=== PATIENT | male | born 1980 | race Caucasian/White ===

== ENCOUNTER → 2016-12-19 19:58 | Outpatient (CLI) | payer MEDICAID ==
[2016-10-09 09:34] VITALS: BMI 39.9
[~2016-12-19 19:58] MED LIST: DEPAKOTE500 MG PO; FISH OIL 1,0001 CA1 PO; GLUCOPHAGE500 MG PO; HYDROCODONE-APA1 TAB PO; LATUDA40 MG PO; LISINOPRIL10 MG PO; MULTIPLE VITAMI1 TA1 PO; PRILOSEC20 MG PO; STRATTERA40 MG PO; WELLBUTRIN SR150 MG PO; ZOLOFT100 MG PO
== END | disposition home or self-care (01) ==
LOC: D.SLEEP 19:58
DX: G47.33 Obstructive sleep apnea (adult) (pediatric) (principal)

== ENCOUNTER → 2017-05-30 08:56 | Outpatient (CLI) | payer MEDICAID ==
[2016-10-09 09:34] VITALS: BMI 39.9
== END | disposition home or self-care (01) ==
LOC: D.CT 08:56
DX: R91.1 Solitary pulmonary nodule (principal)

== ENCOUNTER → 2017-07-23 07:30 | Outpatient (CLI) | payer MEDICAID ==
[2016-10-09 09:34] VITALS: BMI 39.9
--- NOTE | ~2017-07-23 | ST ---
PATIENT:NBA PARDO MEDICAL RECORD: [id number] SEX: M LOCATION:[facility] ORDER #: ADMISSION DATE: 07/23/17 AGE OF PATIENT: 37 REFERRING PHYSICIAN: INTERPRETING PHYSICIAN: CLOTILDE HUERTAS MD DATE OF SERVICE: 07/23/2017 Nuclear Stress Test INDICATION: Chest pain of unknown etiology. He was exercised on standard Lexiscan protocol with 32 mCi of sestamibi injected at peak stress 12.4 mCi were used previously for rest images. FINDINGS: Gated SPECT reveals preserved ejection fraction at 69% with good wall motion and thickening and brightening throughout all segments. SPECT imaging Cardiolite was used as myocardial perfusion agent. There is homogeneous uptake throughout all segments at rest and stress with no evidence of inducible ischemia or previous infarction. OVERALL IMPRESSION: 1. This is a normal nuclear stress test with no evidence of inducible ischemia or previous infarction. 2. Gated SPECT reveals preserved ejection fraction greater than 60%. In this patient with chest pain history, the current scan does not suggest the presence of hemodynamically significant coronary disease. Evaluate noncardiac etiology of chest pain. TRANSINT:[id number] Voice Confirmation ID: [id number] DOCUMENT ID: [id number] CLOTILDE HUERTAS MD CC: [id number] DICTATION DATE: 07/24/17 1137 ACCOUNT SERVICES ANALYST: 07/25/17 0120 DEP CLI 07/23/17 [facility] [address] [place] [address]
== END | disposition home or self-care (01) ==
LOC: D.NM 07:30
DX: R07.9 Chest pain, unspecified (principal)

== ENCOUNTER → 2017-08-02 09:08 | Outpatient (CLI) | payer MEDICAID ==
[2016-10-09 09:34] VITALS: BMI 39.9
== END | disposition home or self-care (01) ==
LOC: D.RT 09:00
DX: R06.00 Dyspnea, unspecified (principal)

== ENCOUNTER → 2018-01-08 19:17 | Outpatient (CLI) | payer MEDICAID ==
[2016-10-09 09:34] VITALS: BMI 39.9
== END | disposition home or self-care (01) ==
LOC: D.SLEEP 12-17 08:00
DX: G47.30 Sleep apnea, unspecified (principal)

== ENCOUNTER 2018-05-28 20:17 | Emergency (ER) | payer MEDICAID ==
[~2018-05-28] VITALS: Ht 172.7 cm; Wt 111.8 kg
[2018-05-28 20:26] VITALS: Ht 172.7 cm; Wt 111.8 kg
[2018-05-29] MEDS ORDERED: TORADOL10 MG PO (01:23)
[2018-05-29 02:48] VITALS: BP 120/75
[2018-07-24] MEDS ORDERED: LOSARTAN POTASS25 MG PO (11:29)
[2018-07-24] MEDS ORDERED: LIPITOR40 MG PO (11:32)
[2018-07-24] MEDS ORDERED: ACTOS30 MG PO (11:32)
== END 2018-05-29 02:13 | disposition home or self-care (01) ==
LOC: D.ER 20:17
DX: S61.512A Laceration without foreign body of left wrist, initial encounter (principal); W26.8XXA Contact with other sharp object(s), not elsewhere classified, initial encounter; Y93.89 Activity, other specified; Y92.89 Other specified places as the place of occurrence of the external cause

== ENCOUNTER 2018-07-25 07:49 | Day surgery (SDC) | payer MEDICAID ==
[~2018-07-25] VITALS: Ht 172.7 cm; Wt 116.6 kg
--- NOTE | ~2018-07-25 | OP ---
PATIENT NAME: NBA PARDO MEDICAL RECORD: [id number] :78 LOCATION:[facility] ADMISSION DATE: SURGEON: NICO HENDRICKSON MD DATE OF OPERATION: 07/25/2018 PREOPERATIVE DIAGNOSES: 1. Recurrent anal fistula. 2. Hypertension. 3. Diabetes mellitus. 4. Gastroesophageal reflux disease. POSTOPERATIVE DIAGNOSES: 1. Recurrent anal fistula. 2. Hypertension. 3. Diabetes mellitus. 4. Gastroesophageal reflux disease. PROCEDURE: 1. Anal exam under anesthesia. 2. Tryon anal fistula plug placement. SURGEON: Nico Hendrickson MD REPORT OF PROCEDURE: The patient was placed in the lithotomy position. The perianal region was prepped and draped in sterile fashion. An anoscope was inserted and a 360 degree inspection was performed. The patient was noted to have a fistula from the anoderm to the distal rectum at about the 7 o'clock position. There was no sign of an underlying fluid collection. We penetrated the external aspect of the wound through the anoderm and we were able to progress in a straight line to the distal rectal opening. A Tryon anal fistula patch was opened and a portion of this was removed. The plug was then pulled through the opening and sutured into place with 2-0 nylons at the anoderm and in the rectal tissue. We irrigated out the wound with normal saline and assured there was no sign of any bleeding. The patient did have a small anterior internal hemorrhoid, but there did not appear to be any signs of any bleeding from this. We then inserted a piece of Gelfoam dipped in Americ[place] into the anal region. COMPLICATIONS: None. CONDITION: Stable. ANESTHESIA: General endotracheal. BLOOD LOSS: Minimal. TRANSINT:[id number] Voice Confirmation ID: [id number] DOCUMENT ID: [id number] OPERATIVE REPORT [id number] PARDO,NBANICO LEE MD at 0807 CC: CATHIE CARTWRIGHT [id number] DICTATION DATE: 07/25/18 1106 CHEFS: 07/25/18 1144 [facility] 07/25/18 [place] [address]
[~2018-07-25 07:49] MED LIST changes: +ACTOS30 MG PO; +LIPITOR40 MG PO; +LOSARTAN POTASS25 MG PO; +TORADOL10 MG PO
[2018-07-25 08:22] LABS: CALC OSMOLALITY 272 mosm/kg (275-300); CALCIUM 8.3 mg/dL (8.5-10.1); CHLORIDE - SERUM 99 mmol/L (98-107); POTASSIUM - SERUM 3.9 mmol/L (3.5-5.1); SODIUM 133 mmol/L (136-145); UREA NITROGEN 8 mg/dL (7-18); eGFR NON AFRICAN AMERICAN 88 mL/min (90-120)
[2018-07-25 08:25] LABS: GLUCOSE 258 mg/dL (74-106)
[2018-07-25 08:26] LABS: EOSINOPHILS 1.1 % (0-7); HEMATOCRIT 41.4 % (42.0-54.0); HEMOGLOBIN 14.4 g/dL (13.5-17.5); IMMATURE GRANULOCYTES 0.5 % (0-5); LYMPHOCYTES 29.7 % (15-50); MCH 29.4 pg (26.0-34.0); MCHC 34.8 g/dL (31.0-37.0); MCV 84.7 fL (80.0-100.0); MEAN PLATELET VOLUME 10.8 fL (7.4-10.4); MONOCYTES 4.9 % (2-11); NEUTROPHILS 62.8 % (40-80); PLATELET COUNT 173 10x3/uL (130-400); RBC 4.89 10x6/uL (4.20-6.10); WBC 6.1 10x3/uL (4.8-10.8)
[2018-07-25 09:12] VITALS: BP 127/85; Ht 172.7 cm; Wt 116.6 kg
[2018-07-25] MEDS ORDERED: HYDROCODONE-APA1 TAB PO (10:59)
== END 2018-07-25 14:00 | disposition home or self-care (01) ==
LOC: D.OPS 07:49
PROVIDERS: Anesthesiology
DX: K60.3 Anal fistula (principal); I10 Essential (primary) hypertension; E11.9 Type 2 diabetes mellitus without complications; K21.9 Gastro-esophageal reflux disease without esophagitis; Z01.812 Encounter for preprocedural laboratory examination

== ENCOUNTER → 2018-12-03 12:39 | Outpatient (CLI) | payer MEDICAID ==
[2018-07-25 09:12] VITALS: BMI 39.1
--- NOTE | ~2018-12-03 | EC ---
PATIENT:NBA PARDO DATE OF SERVICE: 12/03/18 SEX: M MEDICAL RECORD: [id number] DATE OF : [birth year] [facility] AGE OF PATIENT: 38 ADMISSION DATE: 12/03/18 REFERRING PHYSICIAN: INTERPRETING PHYSICIAN: CLOTILDE CH MD ECHOCARDIOGRAM REPORT ECHO CHARGES 4 ECHO COMPLETE Date: 12/03/18 CLINICAL DIAGNOSIS: HTN/CP ECHOCARDIOGRAPHIC MEASUREMENTS (adult normal given) AC root (d.<3.7cm) 3.8 cm LV Septum d (<1.2 cm> 1.0 cm Valve Excursion 2.1 cm LV Septum (systole) 1.6 cm Left Atria (s.<4.0cm> 4.6 cm LVPW d(<1.2cm) 1.1 cm RV (d.<2.3cm) 2.5 cm LVPW (sytole) 1.9 cm LV diastole(<5.6CM) 5.5 cm MV E-F(>70mm/sec) cm LV systole 3.7 cm LVOT Diameter 2.0 cm MV exc.(>10mm) cm Est.ejection fraction (50-75%) % DOPPLER: LVIT cm/sec A 44.0 cm/sec E 73.0 cm/sec LA cm/sec RVSP 24.0 mmHg LVOT 141 cm/sec AOP1/2T m/s Asc. Ao 152 cm/sec RVOT 69.0 cm/sec RA cm/sec PA 116 cm/sec AV Gradient Peak 9.3 mmHg AV Mean 5.0 mmHg AV Area 2.7 cm MV Gradient Peak 3.1 mmHg MV Mean 1.3 mmHg MV Area cm COMMENTS: Drill Runner: 1 SINDHU DORADOOE Quality Control Associate: 1 Dr. Ch TAPE# PACS Pericardial Effusion N DATE OF SERVICE: FINDINGS: 1. Left ventricular chamber size is within normal limits. Left ventricular systolic function is normal. Overall ejection fraction is estimated at 55%. 2. Left atrium is enlarged at 4.6 cm. Right atrium and right ventricular chamber sizes are as well mildly dilated. 3. Valvular structures have normal structure and motion. 4. Doppler interrogation reveals only trace mitral regurgitation. No other valvular insufficiency or stenosis. Pulmonary systolic pressure is estimated at ECHOCARDIOGRAM REPORT [id number] NBA PARDO 24 mmHg. 5. No evidence of pericardial effusion or left ventricular thrombus. TRANSINT:[id number] Voice Confirmation ID: [id number] DOCUMENT ID: [id number] CLOTILDE CH MD CC: [id number] DICTATION DATE: 12/04/18 1342 TRAFFIC DIRECTOR: 12/04/18 1648 DEP CLI 12/03/18 [facility] [address] [place] [place] [id number]
== END | disposition home or self-care (01) ==
LOC: D.ECHO 12:39
DX: I10 Essential (primary) hypertension (principal); R07.9 Chest pain, unspecified; E78.5 Hyperlipidemia, unspecified

== ENCOUNTER → 2018-12-16 09:59 | Outpatient (CLI) | payer MEDICAID ==
[2018-07-25 09:12] VITALS: BMI 39.1
[~2018-12-16 09:59] MED LIST changes: +PLAVIX75 MG PO
--- NOTE | 2018-12-17 16:39 | ST ---
PATIENT:NBA PARDO MEDICAL RECORD: [id number] SEX: M LOCATION:[facility] ORDER #: ADMISSION DATE: 12/16/18 AGE OF PATIENT: 38 REFERRING PHYSICIAN: INTERPRETING PHYSICIAN: CLTOILDE HUERTAS MD DATE OF SERVICE: 12/16/2018 PROCEDURE: Nuclear Stress Test. INDICATION: Angina, shortness of breath, hypertension, and hyperlipidemia. DESCRIPTION: He was exercised on standard Ernesto protocol for 9 minutes achieving max target heart rate response with 33 mCi of sestamibi injected at peak stress 10 mCi were used previously for rest images. FINDINGS: Gated SPECT reveals preserved ejection fraction at 63% with good wall motioning and thickening and brightening throughout all segments. SPECT IMAGING: Cardiolite was used as myocardial perfusion agent. There is reversible ischemia inferiorly. This includes the basal, mid, apical, inferior segments. The degree of reversibility is mild to moderate. The amount of myocardium involved is moderate. OVERALL IMPRESSION: 1. This is an abnormal nuclear stress test with reversible changes inferiorly. 2. Gated SPECT reveals preserved ejection fraction greater than 60%. In this patient with ongoing symptomatology, the current scan does suggest the presence of the hemodynamically significant coronary artery disease. We will proceed with coronary angiography as followup study. TRANSINT:[id number] Voice Confirmation ID: [id number] DOCUMENT ID: [id number] CLOTILDE HUERTAS MD at 1639 CC: CATHIE CARTWRIGHT [id number] DICTATION DATE: 12/16/18 1610 PHYSICAL THERAPY NURSE: 12/17/18 0741 DEP CLI 12/16/18 [id number] [place] [address]
== END | disposition home or self-care (01) ==
LOC: D.HCCARDIO 12-11 09:30
DX: I20.9 Angina pectoris, unspecified (principal); I10 Essential (primary) hypertension; R06.02 Shortness of breath; E78.5 Hyperlipidemia, unspecified

== ENCOUNTER 2019-01-02 07:43 | Outpatient (CLI) | payer MEDICAID ==
[~2019-01-02] VITALS: Ht 170.2 cm; Wt 111.8 kg
--- NOTE | ~2019-01-02 | HEMODYNAMI ---
PATIENT:NBA PARDO MEDICAL RECORD: [id number] : 78 LOCATION:[facility] ADMISSION DATE: 01/02/19 Generatedon:01/02/201910:13 Patient name: NBA PARDO Patient #: [id number] SSN: D OB: 1980 Date of study: 01/02/2019 Page: Of Hemodynamic Procedure Report Patient Data Patient Demographics Procedure consent was obtained First Name: NBA Gender: Male Last Name: CHAR : 1980 Middle Initial: D Age: 38 year(s) Patient #: [id number] Race: Unknown Additional ID: [id number] Contact details Address: [place] [address] State: [place] City: [place] Zip code: [address] Past Medical History Allergies: No known allergies Admission Admission Data Admission Date: 01/02/2019 Admission Time: 7:43 Lab Results Lab Result Date: 01/02/2019 Lab Result Time: 0:00 Biochemistry Name Units Result Min Max BUN mg/dl 15 --(--*-)-- 7 18 Creatinine mg/dl 1 --(--*-)-- 0.6 1.3 CBC Name Units Result Min Max Hemoglobin g/dl 15.1 --(-*--)-- 13.5 17.5 Procedure Procedure Types Cath Procedure Diagnostic Procedure [facility] w/Coronaries FFR/IVUS Intra-Coronary IVUS Initial Sedation Charges Moderate Sedation up to 15 minutes PCI Procedure Coronary Stent Coronary Stent Initial x2 Procedure Description Procedure Date Procedure Date: 01/02/2019 Procedure Start Time: 9:45 Procedure End Time: 10:09 Procedure Staff Name Function Renan Ch MD Performing Physician Cecilia Florez RT Scrub Sandy Rivera RT Monitor Dg Clark RN Nurse Procedure Data Cath Procedure Fluoroscopy Diagnostic fluoroscopy Total fluoroscopy Time: 6.8 time: 6.8 min min Diagnostic fluoroscopy Total fluoroscopy dose: dose: 1434 mGy 1434 mGy Contrast Material Contrast Material Type Amount (ml) Isovue 300 108 Entry Location Entry Primary Successful Side Size Upsize Upsize Entry Closure Vanegas ccessful Closure Location (Fr) 1 (Fr) 2 (Fr) Remarks Device Remarks Radial Right 6 Fr Mechanical artery Short Compression Estimated blood loss: 10 ml Diagnostic catheters Device Type Used For End Catheter Placement DIAGNOSTIC 5FR Super Procedure Torque RBL-TG ([id number]) DIAGNOSTIC AR MOD 5Fr Procedure Catheter ([id number]) Procedure Complications No complications Procedure Medications Medication Administration Route Dosage Oxygen etCO2 Nasal cannula 2 l/min Heparin Flush Bag added to field 2 bags (1000units/500ml NS) 0.9% NaCl I.V. 100 ml/hr Lidocaine 2% added to field 20 Radial Cocktail added to field 1 syringe (Verapomil 2mg/Nitro 400mcg/Heparin 1500units) Fentanyl I.V. 100 mcg Versed I.V. 2 mg Fentanyl I.V. 100 mcg Versed I.V. 2 mg Radial Cocktail I.A. 1 syringe (Verapomil 2mg/Nitro 400mcg/Heparin 1500units) Heparin Bolus I.V. 4000 units Integrilin (Bolus I.V. 10.2 ml 2mg/ml) Integrilin (Bolus wasted 9.8 ml 2mg/ml) Plavix P.O. 600 mg Hemodynamics Rest HGB: 15.1 (g/dl) Heart Rate: 82 (bpm) Pressure Samples Time Site Value (mmHg) Purpose Heart Use Rate(bpm) 9:49 LV -15/-15,-43 Snapshot 60 Gradients Valve Time Site Site Mean SEP/DFP Peak To Heart Use 1 2 (mmHg) (sec/min) Peak Rate (mmHg) (bpm) Aortic 9:49 LV AO 56 Snapshots Pre Cath Intra NCS Post Cath Vital Signs Time Heart Resp SPO2 etCO2 NIBP (mmHg) Rhythm Pain Sedation Rate (ipm) (%) (mmHg) Status Level (bpm) 9:14:42 81 17 96 0 133/84(103) NSR 0 (11) 10(A) , No pain 9:18:54 76 16 93 37 128/79(104) NSR 0 (11) 10(A) , No pain 9:23:02 81 17 95 37 134/84(101) NSR 0 (11) 10(A) , No pain 9:27:14 80 17 96 34 135/81(102) NSR 0 (11) 10(A) , No pain 9:31:24 74 16 94 35.5 127/85(101) NSR 0 (11) 10(A) , No pain 9:35:32 76 17 96 15.8 122/82(106) NSR 0 (11) 10(A) , No pain 9:39:37 77 16 95 22.6 126/85(106) NSR 0 (11) 10(A) , No pain 9:43:45 78 16 95 14.3 128/83(107) NSR 0 (11) 10(A) , No pain 9:47:57 72 16 95 31.7 130/76(105) NSR 0 (11) 10(A) , No pain 9:52:07 85 16 89 28.7 127/82(105) NSR 0 (11) 10(A) , No pain 9:56:13 84 16 94 43.8 125/75(101) NSR 0 (11) 10(A) , No pain 10:00:21 87 17 96 31 122/80(89) NSR 0 (11) 10(A) , No pain 10:04:28 76 17 96 20.4 126/80(106) NSR 0 (11) 10(A) , No pain 10:08:37 80 16 95 27.9 139/86(106) NSR 0 (11) 10(A) , No pain 10:13:01 96 0 No Cuff NSR 0 (11) 10(A) , No pain Medications Time Medication Route Dose Verified Delivered Reason Not es Effectiveness by by 9:13:48 Oxygen etCO2 2 l/min Renan Conte Per physician Nasal Dima Clark RN cannula 9:13:56 Heparin Flush added 2 bags Renan Conte used for Bag to Dima Clark RN procedure (1000units/500ml field NS) 9:14:04 0.9% NaCl I.V. 100 Renan Conte Per physician ml/hr Dima Clark RN 9:14:14 Lidocaine 2% added 20ml Renan Conte used for to vial Dima Clark supervisor backfilling field 9:14:23 Radial Cocktail added 1 Renan Conte used for (Verapomil to syringe Dima Clark RN procedure 2mg/Nitro field 400mcg/Heparin 1500units) 9:40:20 Fentanyl I.V. 100 mcg Renan Conte for sedation Dima Clark RN 9:40:26 Versed I.V. 2 mg Renan Conte for sedation Dima Clark RN 9:45:23 Fentanyl I.V. 100 mcg Renan Conte for sedation Dima Clark RN 9:45:29 Versed I.V. 2 mg Renan Conte for sedation Dima Clark RN 9:48:16 Radial Cocktail I.A. 1 Renan Urrutia for (Verapomil syringe Dima Ch MD vasodilation 2mg/Nitro 400mcg/Heparin 1500units) 9:56:18 Heparin Bolus I.V. 4000 Renan Conte for units Dima Clark RN anticoagulation 9:56:29 Integrilin I.V. 10.2 ml Renan Conte for (Bolus 2mg/ml) Dima Clark RN antiplatelet therapy 9:56:37 Integrilin wasted 9.8 ml Renan sneed (Bolus 2mg/ml) Dima Clark RN antiplatelet therapy 10:09:30 Plavix P.O. 600 mg Renan Conte for Dima Clark RN antiplatelet therapy Procedure Log Time Note 8:50:59 Diagnostic Cath Status : Elective 8:52:09 Dg Clark RN sent for patient. Start room use. 8:52:10 Time tracking: Regular hours (M-F 7:00 - 5:00) 8:52:15 Plan of Care:Hemodynamics will remain stable., Cardiac rhythm will remain stable., Comfort level will be maintained., Respiratory function will remain adequate., Patient/ family verbilizes understanding of procedure., Procedure tolerated without complication., Recovers from procedure without complications.. 9:13:37 Patient received from Pre/Post Procedure Room to [facility] 2 Alert and oriented. Tansferred to table in Supine position. 9:13:38 Warm blankets applied, and farrukh hugger turned on for patient comfort. 9:13:39 Correct patient and procedure confirmed by team. 9:13:41 Signed procedure consent form obtained from patient. 9:13:42 ECG and BP/O2 sat monitors applied to patient. 9:13:42 Vital chart was started 9:13:48 Oxygen 2 l/min etCO2 Nasal cannula was administered by Dg Clark RN; Per physician; 9:13:56 Heparin Flush Bag (1000units/500ml NS) 2 bags added to field was administered by Dg Clark RN; used for procedure; 9:14:04 0.9% NaCl 100 ml/hr I.V. was administered by Dg Clark RN; Per physician; 9:14:09 Baseline sample Acquired. 9:14:14 Lidocaine 2% 20ml vial added to field was administered by Dg Clark RN; used for procedure; 9:14:14 Rhythm: sinus rhythm 9:14:15 Full Disclosure recording started 9:14:23 Radial Cocktail (Verapomil 2mg/Nitro 400mcg/Heparin 1500units) 1 syringe added to field was administered by Dg Clark RN; used for procedure; 9:14:36 H&P Date Dictated: 12/05/2018 Within 30 days and on chart., H&P Addendum completed by physician on day of procedure. (MUST COMPLETE FOR ALL OUTPATIENTS). 9:14:39 Pre-procedure instructions explained to patient. 9:14:41 Family in waiting room. 9:15:03 Patient NPO since Midnight. 9:15:10 Patient allergic to No known allergies 9:15:13 Is the patient allergic to Iodine/contrast media? No. 9:15:15 Is patient on blood thinner?No 9:15:16 Patient diabetic? Yes. 9:15:18 If diabetic: On Metformin? No 9:15:21 Snore? Yes 9:15:23 Sleep apnea? Yes 9:15:24 Deviated septum? No 9:15:29 Patient pain scale 0/10 ?. 9:15:37 IV patent on arrival in left antecubital with 0.9% NaCl at [facility]. 9:15:48 Lab results completed and on chart. 9:16:15 Lab Result : BUN 15 mg/dl 9:16:15 Lab Result : Creatinine 1 mg/dl 9:16:15 Lab Result : Hemoglobin 15.1 g/dl 9:16:21 Right Radial & Right Groin area was prepped with chlora-prep and draped in sterile fashion 9:16:22 Alarms reviewed by R. N. 9:16:23 Sharps counted by scrub and verified by R.N. 9:29:33 Physician paged 9:30:49 Baseline sample Acquired. 9:39:41 Physician arrived 9:39:41 --------ALL STOP TIME OUT------ 9:39:42 Final Timeout: patient, procedure, and site verified with staff and physician. All members of the team are in agreement. 9:39:45 Right Radial & Right Groin site verified by team. 9:39:57 Fire Safety Assessment: A--An alcohol-based skin anteseptic being used preoperatively., C--Open oxygen or nitrous oxide is being used., D--An ESU, laser, or fiber-optic light is being used. 9:40:01 Physical assessment completed. ASA score P 2 - A patient with mild systemic disease as per Renan Ch MD. 9:40:05 Sedation plan: IV Moderate Sedation Medication:Versed, Fentanyl 9:40:20 Fentanyl 100 mcg I.V. was administered by Dg Clark RN; for sedation; 9:40:26 Versed 2 mg I.V. was administered by Dg Clark RN; for sedation; 9:43:14 Zero performed for pressure channel P1 9:43:26 Use device set Radial Dx or PCI 9:43:27 ACIST Syringe (49750) opened to sterile field. 9:43:28 Medline Cath Pack ([id number]) opened to sterile field. 9:43:28 Bag Decanter (2002) opened to sterile field. 9:43:29 DIAGNOSTIC WIRE .035 260cm J wire (691778) opened to sterile field. 9:43:29 ACIST Hand Control (74215) opened to sterile field. 9:43:30 ACIST Manifold (74999) opened to sterile field. 9:43:31 Tegaderm 4 x 4 (1626W) opened to sterile field. 9:43:33 MBrace Wrist Support ([id number]) opened to sterile field. 9:43:37 SHEATH 6FR Slender (28-9270) opened to sterile field. 9:45:23 Fentanyl 100 mcg I.V. was administered by Dg Clark RN; for sedation; 9:45:29 Procedure started. 9:45:29 Versed 2 mg I.V. was administered by Dg Clark RN; for sedation; 9:45:45 Local anesthetic to right radial artery with Lidocaine 2% by Renan Ch MD.INITIAL ACCESS ONLY 9:46:07 A 6 Fr Short sheath was inserted into the Right Radial artery 9:48:16 Radial Cocktail (Verapomil 2mg/Nitro 400mcg/Heparin 1500units) 1 syringe I.A. was administered by Renan Ch MD; for vasodilation; 9:48:29 A DIAGNOSTIC 5FR Super Torque RBL-TG ([id number]) was advanced over the wire and used for Procedure. 9:48:37 j wire advanced. 9:49:04 LV angiography performed. 9:49:36 EF : 55 % 9:50:07 LCA angiography performed. 9:51:18 Catheter removed. 9:52:18 A DIAGNOSTIC AR MOD 5Fr Catheter ([id number]) was advanced over the wire and used for Procedure. 9:52:34 RCA angiography performed. 9:53:53 CHOICE PT Extra Support 182cm wire ([id number]) opened to sterile field. 9:53:54 INFLATOR Merit BasixCompak (RB5172) opened to sterile field. 9:53:55 [place] IVUS Catheter (68448B) opened to sterile field. 9:54:04 Catheter removed. 9:55:41 GUIDE 6FR AR 2.0 catheter ([id number]) opened to sterile field. 9:55:57 6 Fr AR2 guide catheter was inserted over the wire 9:56:01 choice wire advanced. 9:56:02 Wire advanced across lesion. 9:56:18 Heparin Bolus 4000 units I.V. was administered by Dg Clark RN; for anticoagulation; 9:56:29 Integrilin (Bolus 2mg/ml) 10.2 ml I.V. was administered by Dg Clark RN; for antiplatelet therapy; 9:56:37 Integrilin (Bolus 2mg/ml) 9.8 ml wasted was administered by Dg Clark RN; for antiplatelet therapy; 9:57:53 Place stent Inflation Number: 1 A COSTA RX 2.25 x 15 stent ([id number]) was prepped and advanced across the Prox RCA. The stent was deployed at 13 JENNIFER for 0:17 (min:sec). 9:58:16 Wire removed. 9:58:16 Guide catheter removed. 9:59:29 GUIDE 6FR XB 3.5 catheter ([id number]) opened to sterile field. 10:00:04 6 Fr XB3.5 guide catheter was inserted over the wire 10:00:23 choice wire advanced. 10:01:02 IVUS catheter advanced over wire. 10:05:30 Place stent Inflation Number: 1 A COSTA RX 3.0 x 38 stent ([id number]) was prepped and advanced across the Mid CX. The stent was deployed at 17 JENNIFER for 0:07 (min:sec). 10:06:56 Wire removed. 10:06:57 Guide catheter removed. 10:07:20 Sheath removed intact; hemostasis achieved with Mechanical Compression to the Right Radial artery. 10:07:23 Procedure ended.(Physican Out) 10:07:34 Fluoroscopy time 06.80 minutes. 10:07:39 Fluoroscopy dose: 1434 mGy 10:07:39 Flurop Dose total: 1434 10:07:43 Contrast amount:Isovue 300 108ml. 10:07:44 Sharps counted by scrub and verified by R.N. 10:07:48 TR band inflated with 10cc of air. 10:07:49 Insertion/operative site no bleeding no hematoma. 10:07:51 Post Procedure Pulses reassessed and unchanged 10:07:57 Post-procedure physical assessment completed. ASA score P 2 - A patient with mild systemic disease as per Renan Ch MD. 10:08:01 Post procedure rhythm: unchanged. 10:08:03 Estimated blood loss: 10 ml 10:08:05 Post procedure instruction explained to patient.Patient verbalizes understanding. 10:08:37 Procedure type changed to Cath procedure, Diagnostic procedure, LHC, LHC w/Coronaries, FFR/IVUS, Intra-Coronary IVUS Initial, Sedation Charges, Moderate Sedation up to 15 minutes, PCI procedure, Coronary Stent, Coronary Stent Initial x2 10:08:39 Procedure and supply charges have been captured, reviewed, submitted and are correct. 10:09:15 Procedure Complication : No complications 10:09:17 Vital chart was stopped 10:09:18 See physician's report for complete and final results. 10:09:20 Report given to Pre/Post Procedure Room. 10:09:23 Patient transfered to Pre/Post Procedure Room with Stretcher. 10::26 Procedure ended. 10:09:26 Full Disclosure recording stopped 10:09:30 Plavix 600 mg P.O. was administered by Dg Clark RN; for antiplatelet therapy; 10:09:30 End room use (Document Last) 10:09:38 ACC-PCI Only Patient was given prescriptions, or instructed by Renan Ch MD to start/continue the following medications upon discharge: Plavix Intervention Summary Intervention Notes Time ActionType Lesion and Equipment Used Action# Pressure Duration Attributes 9:57:53 Place stent Prox RCA COSTA RX 2.25 x 1 13 00:17 15 stent ([id number]) 10:05:30 Place stent Mid CX COSTA RX 3.0 x 1 17 00:07 38 stent ([id number]) Device Usage Item Name Manufacture Quantity Catalog Number Hospital Part Current M inimal Lot# / Charge Number Stock Stock Serial# Code ACIST Syringe Acist 1 61304 162320 290021 261163 2 0 (84821) Medical Systems Inc Medline Cath Medline 1 [id number] 284557 89200 071499 5 Pack ([id number]) Bag Decanter Microtek 1 2001S 727030 38815 451319 5 (2001S) Medical Inc. DIAGNOSTIC St Jerem[place] 1 140092 527273 469267 902419 3 0 WIRE .035 260cm J wire (302209) ACIST Hand Acist 1 00950 512227 148041 503089 5 Control Medical (48944) Systems Inc ACIST Manifold Acist 1 00463 825810 963747 171397 5 (93627) Medical Systems Inc Tegaderm 4 x 4 3M 1 1626W 180784 081458 113171 5 (1626W) MBrace Wrist Advanced 1 140-0250-00 694270 47557 064841 5 Support Vascular (583084404) Dynamics SHEATH 6FR Terumo 1 [id number] 348277 285290 501264 5 Slender (80-1060) DIAGNOSTIC 5FR Cardinal 1 [id number] 203009 937323 5 Super Torque Health RBL-TG (026699L5) DIAGNOSTIC AR Cardinal 1 [id number] 757515 358085 880767 1 5 MOD 5Fr Health Catheter (833430N) CHOICE PT [place] 1 [id number] 381705 081331 830313 5 Extra Support Scientific 182cm wire ([id number]) INFLATOR Merit Merit 1 IW5489 531625 243984 897096 1 5 [facility] Medical (JC5812) [place] 1 96371I 333334 047489 913221 8 [place] IVUS Catheter (18716J) GUIDE 6FR AR Medtronic 1 [id number] 954818 10494 170058 1 2.0 catheter (UT3MO82) COSTA RX 2.25 x Medtronic 1 [id number] 966845 1930296 992354 5 [id number] 15 stent ([id number]) GUIDE 6FR XB Cardinal 1 [id number] 910045 186748 839872 2 3.5 catheter Health (95654628) COSTA RX 3.0 x Medtronic 1 [id number] 147864 6621115 341787 5 [id number] 38 stent ([id number]) Signature Audit Crandall Stage Time Signature Unsigned Intra-Procedure 01/02/2019 Sandy Rivera 10:13:32 AM RT(R) Signatures Monitor : Sandy Rivera Signature : RT Date : Time : [facility] [address] [place] [address]
[~2019-01-02 07:43] MED LIST changes: -PLAVIX75 MG PO
[2019-01-02 08:20] VITALS: BP 131/92; Ht 170.2 cm; Wt 111.8 kg
[2019-01-02 08:33] LABS: BASOPHILS 0.7 % (0-2); EOSINOPHILS 1.2 % (0-7); HEMATOCRIT 42.5 % (42.0-54.0); HEMOGLOBIN 15.1 g/dL (13.5-17.5); IMMATURE GRANULOCYTES 0.3 % (0-5); LYMPHOCYTES 33.3 % (15-50); MCH 29.9 pg (26.0-34.0); MCHC 35.5 g/dL (31.0-37.0); MCV 84.2 fL (80.0-100.0); MEAN PLATELET VOLUME 11.1 fL (7.4-10.4); MONOCYTES 4.4 % (2-11); NEUTROPHILS 60.1 % (40-80); PLATELET COUNT 205 10x3/uL (130-400); RBC 5.05 10x6/uL (4.20-6.10); RDW 13.1 % (11.5-14.5); WBC 7.2 10x3/uL (4.8-10.8)
[2019-01-02 08:52] LABS: CALC OSMOLALITY 280 mosm/kg (275-300); CALCIUM 8.7 mg/dL (8.5-10.1); CHLORIDE - SERUM 97 mmol/L (98-107); POTASSIUM - SERUM 3.9 mmol/L (3.5-5.1); SODIUM 134 mmol/L (136-145); UREA NITROGEN 15 mg/dL (7-18); eGFR NON AFRICAN AMERICAN 88 mL/min (90-120)
[2019-01-02 08:53] LABS: GLUCOSE 316 mg/dL (74-106)
[2019-01-02] MEDS ORDERED: PLAVIX75 MG PO (10:26)
--- NOTE | 2019-01-02 10:35 | NUR ---
2L NC, NO RESP DISTRESS. RIGHT WRIST TR BAND CDI, NO BLEEDING OR HEMATOMA NOTED. NO C/O PAIN OR NAUSEA. VSS. CALL LIGHT WITHIN REACH.
--- NOTE | 2019-01-02 11:05 | NUR ---
RESTING QUIETLY WITH EYES CLOSED. RIGHT WRIST TR BAND CDI, NO BLEEDING OR HEMATOMA NOTED. DENIES ANY NEEDS OR C/O AT THIS TIME. VSS. CALL LIGHT WIHIN REACH.
--- NOTE | 2019-01-02 11:20 | NUR ---
CONTINUES TO REST COMFORTABLY WITH NO C/O. RIGHT WRIST TR BAND CDI, NO BLEEDING OR HEMATOMA NOTED. NO NEEDS VOICED. VSS. WILL CONTINUE TO MONITOR.
--- NOTE | 2019-01-02 11:50 | NUR ---
SIPPING ON DRINK AND EATING SANDWICH WITH NO C/O NAUSEA. RIGHT WRIST TR BAND CDI, NO BLEEDING OR HEMATOMA NOTED. ROOM AIR WITH N ORESP DISTRESS. DENIES ANY NEEDS. VSS. CALL LIGHT WITHIN REACH.
--- NOTE | 2019-01-02 13:00 | NUR ---
3CC OF AIR REMOVED FROM TR BAND WITH NO BLEEIDNG NOTED. VSS. CALL LIGHT WTIHIN REACH.
--- NOTE | 2019-01-02 13:20 | NUR ---
3CC OF AIR REMOVED FROM TR BAND WITH NO BLEEDING NOTED.
--- NOTE | 2019-01-02 13:50 | NUR ---
LEFT PIV D/C'D WITH CATHETER INTACT, BAND AID TO SITE. UP TO BEDSIDE TO GET DRESSED. AMBULATED TO RESTROOM.
--- NOTE | 2019-01-02 14:03 | NUR ---
REMAINING AIR REMOVED FROM TR BAND WITH NO BLEEDING NOTED. DRESSING PLACED TO SITE. DISCHARGE INSTRUCTIONS GIVEN ALONG WITH PLAVIX PRESCRIPTION, VERBALIZED UNDERSTANDING.
--- NOTE | 2019-01-02 14:14 | NUR ---
TAKEN OUT VIA WHEELCHAIR BY CATH VIOLENT CRIMES DETECTIVE. LEFT FACILITY WITH FAMILY AND ALL PERSONAL BELONGINGS.
--- NOTE | 2019-01-02 15:09 | OP ---
PATIENT NAME: NBA PARDO MEDICAL RECORD: [id number] :78 LOCATION:[facility] ADMISSION DATE: SURGEON: CLOTILDE HUERTAS MD DATE OF OPERATION: 01/02/2019 PROCEDURES: 1. PTCA and stent of left circumflex. 2. PTCA and stent of RCA. 3. Intravascular ultrasound. 4. Left heart catheterization. 5. Selective coronary angiography. 6. Left ventriculogram. INDICATIONS: Angina and coronary artery disease. PROCEDURE PERFORMED: After informed consent was obtained and after detailed explanation of risks, benefits as well as alternative therapies, the patient elected to proceed with angiogram and angioplasty. The right radial area was prepped and draped in normal sterile fashion. Right radial artery was cannulated via modified Seldinger technique with placement of 6-Divehi sheath. All catheters exchanged through this sheath. FINDINGS: The left ventriculogram was performed in a standard 30-degree BLAKE view, reveals good cardiac wall motion throughout all segments. Overall ejection fraction estimated at 60%. SELECTIVE CORONARY ANGIOGRAPHY: 1. Left main is with no significant angiographic disease. 2. Left anterior descending has mild irregularities, but no flow-limiting stenosis. 3. The left circumflex has greater than 80% throughout the mid vessel confirmed by intravascular ultrasound. 4. Right coronary has 85% to 90% stenosis in the mid vessel. PTCA AND STENT OF THE RCA: The stent used was a 2.25 x 15-mm [place]. Result was 0% residual stenosis. PTCA AND STENT OF THE LEFT CIRCUMFLEX: The stent used was a 3.0 x 38-mm Tripp. Result was 0% residual stenosis. OVERALL IMPRESSION: Successful PTCA and stent of the left circumflex and RCA, both going from greater than 70% initial stenosis to 0% residual. TRANSINT:[id number] Voice Confirmation ID: [id number] DOCUMENT ID: [id number] CLOTILDE HUERTAS MD at 1509 CC: [id number] DICTATION DATE: 01/02/19 1017 EQUIPMENT MONITOR PHOTOTYPESETTING: 01/02/19 1256 DEP CLI 01/02/19 [place] [address]
== END 2019-01-02 14:14 | disposition home or self-care (01) ==
LOC: D.CATH 07:43
PROVIDERS: Internal Medicine Interventional Cardiology
DX: I25.119 Atherosclerotic heart disease of native coronary artery with unspecified angina pectoris (principal)

== ENCOUNTER → 2019-08-12 16:37 | Outpatient (CLI) | payer MEDICAID ==
[2019-01-02 08:20] VITALS: BMI 38.6
[~2019-08-12 16:37] MED LIST changes: +PLAVIX75 MG PO
[2019-08-12 17:45] LABS: CHOL - HDL RATIO 10.8 ratio (2.3-4.9); LDL-HDL RATIO 6.8 ratio (1.5-3.5)
== END | disposition home or self-care (01) ==
LOC: D.LABREF 16:37
PROVIDERS: ATTEND Internal Medicine Interventional Cardiology
DX: I10 Essential (primary) hypertension (principal)

== ENCOUNTER → 2020-08-30 08:07 | Outpatient (CLI) | payer MEDICAID ==
[2019-01-02 08:20] VITALS: BMI 38.6
== END | disposition home or self-care (01) ==
LOC: D.MRI 08:07
PROVIDERS: ATTEND Orthopaedic Surgery
DX: M54.12 Radiculopathy, cervical region (principal); M75.42 Impingement syndrome of left shoulder

== ENCOUNTER → 2021-02-27 09:50 | Outpatient (CLI) | payer MEDICAID ==
[2020-11-03 16:46] VITALS: BMI 33.2
--- NOTE | ~2021-02-27 | EC ---
PATIENT:NBA PARDO DATE OF SERVICE: 02/27/21 SEX: M MEDICAL RECORD: [id number] DATE OF : 78 [facility] AGE OF PATIENT: 40 ADMISSION DATE: 02/27/21 REFERRING PHYSICIAN: INTERPRETING PHYSICIAN: HARVEY BURT MD ECHOCARDIOGRAM REPORT ECHO CHARGES 4 ECHO COMPLETE Date: 02/27/21 CLINICAL DIAGNOSIS: CAD/EF/LVH/TRICUSPID REGURG ECHOCARDIOGRAPHIC MEASUREMENTS (adult normal given) AC root (d.<3.7cm) 3.7 cm LV Septum d (<1.2 cm> 1.4 cm Valve Excursion 1.8 cm LV Septum (systole) 1.6 cm Left Atria (s.<4.0cm> 3.5 cm LVPW d(<1.2cm) 1.7 cm RV (d.<2.3cm) 3.3 cm LVPW (sytole) 1.9 cm LV diastole(<5.6CM) 5.3 cm MV E-F(>70mm/sec) cm LV systole 3.5 cm LVOT Diameter 2.1 cm MV exc.(>10mm) 1.3 cm Est.ejection fraction (50-75%) % DOPPLER: LVIT cm/sec A 74.0 cm/sec E 94.0 cm/sec LA cm/sec RVSP 19 mmHg LVOT 136 cm/sec AOP1/2T m/s Asc. Ao 143 cm/sec RVOT 90 cm/sec RA cm/sec PA 123 cm/sec AV Gradient Peak 8.16 mmHg AV Mean 3.97 mmHg AV Area 3.8 cm MV Gradient Peak 4.01 mmHg MV Mean 1.31 mmHg MV Area cm COMMENTS: Reservationist: 2 MIROSLAVA STEIN Fermentologist: 3 Dr. Avila TAPE# PACS Pericardial Effusion N DATE OF SERVICE: Adequate 2D, color flow imaging, spectral Doppler, and M-Mode. FINDINGS: LVH is present. LV internal dimension is normal. Wall motion is normal. EF is greater than or equal to 55%. Aortic valve is tricuspid. No evidence of stenosis by Doppler interrogation. Left atrium is normal. Mitral valve shows no prolapse. Trivial MR. Right side is grossly normal. Trivial TR. TRANSINT:[id number] Voice Confirmation ID: [id number] DOCUMENT ID: [id number] ECHOCARDIOGRAM REPORT [id number] NBA PARDO GREGORY A MD CC: [id number] DICTATION DATE: 02/28/21 1341 TRACK WELDER: 02/28/219 DEP CLI 02/27/21 [place] [id number] [place] [id number]
[~2021-02-27 09:50] MED LIST changes: +ALBUTEROL SULF8.5 GM INH; +BAYER CHEWABLE81 MG PO; +COZAAR25 MG PO; +CRESTOR40 MG PO; +GLIMEPIRIDE4 MG PO; +HYDROCODON-ACE1 EA10 PO; +MEDROL DOSE PACK4 MG PO; +NEXIUM20 MG PO; +TOPROL XL25 MG PO
== END | disposition home or self-care (01) ==
LOC: D.HCCECHO 09:30
PROVIDERS: ATTEND Internal Medicine Interventional Cardiology
DX: R06.00 Dyspnea, unspecified (principal)